=== PATIENT | male | born 1955 | race African-American/Black ===

== ENCOUNTER 2017-02-17 04:19 | Emergency (ER) | payer BC, OTHER ==
[~2017-02-17] VITALS: Ht 165.1 cm; Wt 68.0 kg
[2017-02-17] MEDS ORDERED: SODIUM CHLORIDE 0.9% 1,000 ML IV ONE (05:09)
[2017-02-17] MEDS ORDERED: LEVETIRACETAM 500MG PREMIX 100 ML IV ONE (05:15)
[2017-02-17 05:27] LABS: BASOPHILS % 0.2 % (0.0-2.0); EOSINOPHILS % 0.2 % (0.0-5.0); HEMATOCRIT. 43.1 % (42.0-52.0); HEMOGLOBIN. 14.5 g/dL (14.0-18.0); LYMPHOCYTES % 18.1 % (20.0-50.0); MEAN CORPUSCULAR HEMOGLOBIN 28.3 pg (28.0-32.0); MEAN CORPUSCULAR VOLUME 83.9 fL (80.0-94.0); MEAN PLATELET VOLUME 8.8 fl (7.4-10.4); NEUTROPHILS % 74.5 % (40.0-76.0); PLATELET 179 x1000/uL (130-400); RED BLOOD CELL COUNT 5.13 mill/uL (4.7-6.1)
[2017-02-17] MEDS ORDERED: LORAZEPAM 2MG/ML CPJ ONE (05:29)
[2017-02-17] MEDS ORDERED: LORAZEPAM 2MG/ML CPJ IV ONE (05:30)
[2017-02-17 05:43] LABS: CARBON DIOXIDE 22 mEq/L (21-32); CHLORIDE 104 mEq/L (98-107); ETHANOL BLOOD < 10 mg/dL; TROPONIN I < 0.02 ng/mL (0.00-0.04)
[2017-02-17 05:53] LABS: PHENOBARBITAL < 2.1 ug/mL (15.0-40.0)
[2017-02-17 05:54] LABS: CARBAMAZEPINE < 0.5 ug/mL (4-12)
[2017-02-17 06:33] LABS: CLARITY URINE CLEAR (CLEAR); COLOR URINE YELLOW (YELLOW); GLUCOSE URINE NEGATIVE (NEGATIVE); KETONES URINE NEGATIVE (NEGATIVE); LEUKOCYTE ESTERASE URINE NEGATIVE (NEGATIVE); NITRITE URINE NEGATIVE (NEGATIVE); OCCULT BLOOD URINE 2+ (NEGATIVE); PROTEIN URINE TRACE (NEGATIVE); SPECIFIC GRAVITY URINE 1.014 (1.005-1.030); UROBILINOGEN URINE 0.2 E.U./dL (0.2-1.0)
[2017-02-17 06:51] LABS: *AMPHETAMINES SCREEN URINE NEGATIVE (NEGATIVE); *BARBITURATES SCREEN URINE NEGATIVE (NEGATIVE); *BENZODIAZEPINES SCREEN URINE NEGATIVE (NEGATIVE); *COCAINE SCREEN URINE NEGATIVE (NEGATIVE); CANNABINOID URINE SCREEN NEGATIVE (NEGATIVE); METHADONE URINE SCREEN NEGATIVE (NEGATIVE); OPIATES URINE SCREEN NEGATIVE (NEGATIVE); PHENCYCLIDINE URINE SCREEN NEGATIVE (NEGATIVE)
[2017-02-17] MEDS ORDERED: HYDRALAZINE 20MG/ML VIAL IV ONE (08:30)
[2017-02-17 13:00] VITALS: BP 152/91
[2017-02-17] MEDS ORDERED: ONDANSETRON HCL 4MG TABLET PO ONE (13:45)
[2017-02-17] MEDS ORDERED: ONDANSETRON HCL 4MG TABLET ONE (13:54)
== END 2017-02-17 13:55 | disposition home or self-care (01) ==
LOC: ER 04:58
DX: G40.909 Epilepsy, unspecified, not intractable, without status epilepticus (principal); R41.0 Disorientation, unspecified; E86.0 Dehydration; R53.83 Other fatigue; I10 Essential (primary) hypertension; G93.89 Other specified disorders of brain; Z91.14 Patient's other noncompliance with medication regimen; I51.7 Cardiomegaly
CPT/HCPCS: 36415; 70450; 71010; 80053; 80156; 80165; 80184; 80185; 80305; 81001; 83880; 84443; 84484; 85025; 93005; 96361; 96365; 96375; 99285; G0482; J0360; J1953; J2060; J7030; Q0162; Z7610; A4315